=== PATIENT | female | born 1995 | race American Indian/Alaskan Native ===

== ENCOUNTER 2022-10-13 04:08 | Emergency (ER) | payer MEDICAID, SELFPAY ==
--- NOTE | 2022-10-13 04:17 | ED.GENADULT ---
HPI - General Adult <Brian Horn DO - Last Filed: 10/13/22 17:58> General Chief complaint: Toxicology Problem Stated complaint: alerted LOC- took something Time Seen by Provider: 10/13/22 04:12 Source: EMS, police and other (Boyfriend) Mode of arrival: EMS Limitations: altered mental status History of Present Illness HPI narrative: Patient is a 27-year-old female who was brought in by EMS. EMS was called by police. Apparently police found the patient wandering outside. Patient would not answer any questions. According to medical record it does appear that she is had some issues with alcohol in the past. The police state they have had interactions with her in the past but she is never acted like this around them. Patient's boyfriend states she has smoked fentanyl in the past but does not know if she has per taken in any other drugs especially any other intoxicating substances this evening. Per report by EMS the patient is not suicidal or homicidal however here in the emergency department she would not answer any questions. Related Data Home Medications Medication Instructions Recorded Confirmed ibuprofen 600 mg tablet ##0 07/11/16 Review of Systems <Brian Horn DO - Last Filed: 10/13/22 17:58> Review of Systems Narrative: Altered level of consciousness per police however patient would not answer any questions. Patient History <Brian Horn DO - Last Filed: 10/13/22 17:58> Social History Smoking Status: Current every day smoker Exam <Brian Horn DO - Last Filed: 10/13/22 17:58> Initial Vital Signs Initial Vital Signs: Vital Signs Temperature 97.9 F 10/13/22 04:30 Pulse Rate 118 H 10/13/22 04:30 Respiratory Rate 20 10/13/22 04:30 Blood Pressure 125/58 L 10/13/22 04:30 Pulse Oximetry 98 10/13/22 04:30 Oxygen Delivery Method Room Air 10/13/22 04:30 HENMT Head: normal to inspection and normocephalic Resp Effort & Inspection: normal respiratory effort Cardio Rate: tachycardic GI Inspection: non-distended Skin Other: No signs of trauma Neuro Other: Patient is awake and moving all 4 extremities in his ambulatory Psych Other: Patient does appear to have a paranoid local on her face. She is not answering any questions. <Lakshmi Levin DO - Last Filed: 10/13/22 19:06> Initial Vital Signs Initial Vital Signs: Vital Signs Temperature 97.9 F 10/13/22 04:30 Pulse Rate 118 H 10/13/22 04:30 Respiratory Rate 20 10/13/22 04:30 Blood Pressure 125/58 L 10/13/22 04:30 Pulse Oximetry 98 10/13/22 04:30 Oxygen Delivery Method Room Air 10/13/22 04:30 Course <Brian Horn DO - Last Filed: 10/13/22 17:58> Orders Ordered: ED Orders 10/13/22 11:17 Consult to [facility] [place] Software Requirements Engineer Stat Discontinued Medications Lorazepam (Lorazepam 0.5 Mg Tablet) 1 mg PO NOW ONE Stop: 10/13/22 08:14 Last Admin: 10/13/22 09:36 Dose: Not Given Documented By: JONEL Vital Signs Vital signs: Vital Signs - 8 hr 10/13/22 12:54 Pulse Rate 115 H Blood Pressure 114/75 Pulse Oximetry 99 Oxygen Delivery Method Room Air <Lakshmi Levin, DO - Last Filed: 10/13/22 19:06> Orders Ordered: ED Orders 10/13/22 11:17 Consult to [employer] Software Requirements Engineer Stat Discontinued Medications Lorazepam (Lorazepam 0.5 Mg Tablet) 1 mg PO NOW ONE Stop: 10/13/22 08:14 Last Admin: 10/13/22 09:36 Dose: Not Given Documented By: JONEL Vital Signs Vital signs: Vital Signs - 8 hr 10/13/22 12:54 Pulse Rate 115 H Blood Pressure 114/75 Pulse Oximetry 99 Oxygen Delivery Method Room Air Medical Decision Making <Brian Horn DO - Last Filed: 10/13/22 17:58> Lab Data 10/13/22 09:51 10/13/22 09:51 Labs: Lab Results 10/13/22 10/13/22 10/13/22 Range/Units 09:51 09:51 09:51 WBC 9.2 (4.5-11.0) X10^3/uL RBC 4.70 (4.0-5.2) X10^6/uL Hgb 13.7 (12.0-16.0) g/dL Hct 40.2 (36-46) % MCV 85.4 (80-100) fL MCH 29.1 (26-34) PG MCHC 34.1 (30-36) % RDW 14.9 H (11.6-14.8) % Plt Count 348 (150-400) X10^3/uL Neut % (Auto) 73.4 (50-75) % Lymph % (Auto) 18.4 L (25-40) % [place] % (Auto) 7.8 (3-14) % Eos % (Auto) 0.0 L (2-4) % Baso % (Auto) 0.4 (0-2) % Neut # (Auto) 6700 (1186-1949) /uL Lymph # (Auto) 1700 (5794-5592) /uL [place] # (Auto) 700 (0-900) /uL Eos # (Auto) 0 (0-450) /uL Baso # (Auto) 0 (0-100) /uL Sodium 140 (137-145) mmol/L Potassium 3.9 (3.4-5.1) mmol/L Chloride 104 (98-107) mmol/L Carbon Dioxide 26 (22-32) mmol/L BUN 12 (7-17) mg/dL Creatinine 0.55 (0.52-1.04) mg/dL Estimated GFR > 60 (>60) mL/min BUN/Creatinine Ratio 21.8 (6-22) Glucose 114 H (70-100) mg/dL Calcium 9.4 (8.4-10.2) mg/dL Total Bilirubin 0.9 (0.2-1.3) mg/dL AST 31 (14-36) IU/L ALT 17 (<35) IU/L Alkaline Phosphatase 59 (38-126) U/L Total Protein 8.3 H (6.3-8.2) g/dL Albumin 4.9 (3.5-5.0) g/dL Globulin 3.4 (1.7-4.1) g/dL Albumin/Globulin Ratio 1.4 (1.0-2.8) Lipase 67 (23-300) U/L TSH (0.47-4.68) uIU/mL Serum , Qual (Negative) Salicylates < 1.0 (<20) mg/dL Acetaminophen < 10 (10-30) ug/mL Ethyl Alcohol < 10 ( - 10) mg/dL 10/13/22 10/13/22 Range/Units 09:51 09:51 WBC (4.5-11.0) X10^3/uL RBC (4.0-5.2) X10^6/uL Hgb (12.0-16.0) g/dL Hct (36-46) % MCV (80-100) fL MCH (26-34) PG MCHC (30-36) % RDW (11.6-14.8) % Plt Count (150-400) X10^3/uL Neut % (Auto) (50-75) % Lymph % (Auto) (25-40) % [place] % (Auto) (3-14) % Eos % (Auto) (2-4) % Baso % (Auto) (0-2) % Neut # (Auto) (1409-0723) /uL Lymph # (Auto) (1581-7754) /uL [place] # (Auto) (0-900) /uL Eos # (Auto) (0-450) /uL Baso # (Auto) (0-100) /uL Sodium (137-145) mmol/L Potassium (3.4-5.1) mmol/L Chloride (98-107) mmol/L Carbon Dioxide (22-32) mmol/L BUN (7-17) mg/dL Creatinine (0.52-1.04) mg/dL Estimated GFR (>60) mL/min BUN/Creatinine Ratio (6-22) Glucose (70-100) mg/dL Calcium (8.4-10.2) mg/dL Total Bilirubin (0.2-1.3) mg/dL AST (14-36) IU/L ALT (<35) IU/L Alkaline Phosphatase (38-126) U/L Total Protein (6.3-8.2) g/dL Albumin (3.5-5.0) g/dL Globulin (1.7-4.1) g/dL Albumin/Globulin Ratio (1.0-2.8) Lipase (23-300) U/L TSH 0.394 L (0.47-4.68) uIU/mL Serum , Qual Negative (Negative) Salicylates (<20) mg/dL Acetaminophen (10-30) ug/mL Ethyl Alcohol ( - 10) mg/dL MDM Narrative Medical decision making narrative: Patient would not provide any information upon arrival. Patient's friend did come to the emergency department. There is a strong suspicion that the patient has partaken in some sort of an intoxicating substance. Her alcohol level is negative. Is reported that she has had issues with fentanyl in the past however her presentation today is not has consistent with a opioid intoxication but more of some sort psychotropic such as methamphetamine. Patient is directable but is not cooperative with having blood drawn. I do not feel that the patient has capacity to make decisions. There is no signs of trauma. Care turned over to day provider to continue to observe until disposition. <Lakshmi Levin, - Last Filed: 10/13/22 19:06> Lab Data Labs: Lab Results 10/13/22 10/13/22 10/13/22 Range/Units 09:51 09:51 09:51 WBC 9.2 (4.5-11.0) X10^3/uL RBC 4.70 (4.0-5.2) X10^6/uL Hgb 13.7 (12.0-16.0) g/dL Hct 40.2 (36-46) % MCV 85.4 (80-100) fL MCH 29.1 (26-34) PG MCHC 34.1 (30-36) % RDW 14.9 H (11.6-14.8) % Plt Count 348 (150-400) X10^3/uL Neut % (Auto) 73.4 (50-75) % Lymph % (Auto) 18.4 L (25-40) % [place] % (Auto) 7.8 (3-14) % Eos % (Auto) 0.0 L (2-4) % Baso % (Auto) 0.4 (0-2) % Neut # (Auto) 6700 (5953-1905) /uL Lymph # (Auto) 1700 (1885-7856) /uL [place] # (Auto) 700 (0-900) /uL Eos # (Auto) 0 (0-450) /uL Baso # (Auto) 0 (0-100) /uL Sodium 140 (137-145) mmol/L Potassium 3.9 (3.4-5.1) mmol/L Chloride 104 (98-107) mmol/L Carbon Dioxide 26 (22-32) mmol/L BUN 12 (7-17) mg/dL Creatinine 0.55 (0.52-1.04) mg/dL Estimated GFR > 60 (>60) mL/min BUN/Creatinine Ratio 21.8 (6-22) Glucose 114 H (70-100) mg/dL Calcium 9.4 (8.4-10.2) mg/dL Total Bilirubin 0.9 (0.2-1.3) mg/dL AST 31 (14-36) IU/L ALT 17 (<35) IU/L Alkaline Phosphatase 59 (38-126) U/L Total Protein 8.3 H (6.3-8.2) g/dL Albumin 4.9 (3.5-5.0) g/dL Globulin 3.4 (1.7-4.1) g/dL Albumin/Globulin Ratio 1.4 (1.0-2.8) Lipase 67 (23-300) U/L TSH (0.47-4.68) uIU/mL Serum , Qual (Negative) Salicylates < 1.0 (<20) mg/dL Acetaminophen < 10 (10-30) ug/mL Ethyl Alcohol < 10 ( - 10) mg/dL 10/13/22 10/13/22 Range/Units 09:51 09:51 WBC (4.5-11.0) X10^3/uL RBC (4.0-5.2) X10^6/uL Hgb (12.0-16.0) g/dL Hct (36-46) % MCV (80-100) fL MCH (26-34) PG MCHC (30-36) % RDW (11.6-14.8) % Plt Count (150-400) X10^3/uL Neut % (Auto) (50-75) % Lymph % (Auto) (25-40) % [place] % (Auto) (3-14) % Eos % (Auto) (2-4) % Baso % (Auto) (0-2) % Neut # (Auto) (9308-9741) /uL Lymph # (Auto) (8477-2475) /uL [place] # (Auto) (0-900) /uL Eos # (Auto) (0-450) /uL Baso # (Auto) (0-100) /uL Sodium (137-145) mmol/L Potassium (3.4-5.1) mmol/L Chloride (98-107) mmol/L Carbon Dioxide (22-32) mmol/L BUN (7-17) mg/dL Creatinine (0.52-1.04) mg/dL Estimated GFR (>60) mL/min BUN/Creatinine Ratio (6-22) Glucose (70-100) mg/dL Calcium (8.4-10.2) mg/dL Total Bilirubin (0.2-1.3) mg/dL AST (14-36) IU/L ALT (<35) IU/L Alkaline Phosphatase (38-126) U/L Total Protein (6.3-8.2) g/dL Albumin (3.5-5.0) g/dL Globulin (1.7-4.1) g/dL Albumin/Globulin Ratio (1.0-2.8) Lipase (23-300) U/L TSH 0.394 L (0.47-4.68) uIU/mL Serum , Qual Negative (Negative) Salicylates (<20) mg/dL Acetaminophen (10-30) ug/mL Ethyl Alcohol ( - 10) mg/dL MDM Narrative Medical decision making narrative: Patient would not provide any information upon arrival. Patient's friend did come to the emergency department. There is a strong suspicion that the patient has partaken in some sort of an intoxicating substance. Her alcohol level is negative. Is reported that she has had issues with fentanyl in the past however her presentation today is not has consistent with a opioid intoxication but more of some sort psychotropic such as methamphetamine. Patient is directable but is not cooperative with having blood drawn. I do not feel that the patient has capacity to make decisions. There is no signs of trauma. Care turned over to day provider to continue to observe until disposition. Patient seen evaluated by myself signed out by Dr. Horn. She is awake and alert appears to be hallucinating not really forthcoming with information. Boyfriend at bedside is a calming person for her. Suspect methamphetamine use the patient does not fit opioid toxidrome. She has been refusing blood work she is not yet urinated. She is offered Ativan. She is not back to baseline. She declined Ativan. Patient was agreeable to blood work. She did not find it. Blood work is overall reassuring. She never urinated. She is evaluated by social work patient slowly started coming around. Presumed methamphetamine use. To friends are with her she feels safe going home. She started talking more and more especially after evaluation by social work. At this time does not meet involuntary criteria. Discharge Plan Departure Patient Disposition: Home Clinical Impression: Methamphetamine abuse Instructions: DI for Substance Use Disorder Activity Restrictions/Additional Instructions: *You have been diagnosed with it is assumed that you took some methamphetamine yesterday *What to do: If you are feeling unsafe he may always return to the emergency department for help *Continue to take medications as directed *Follow up with your primary care provider in 2-3 days or call [phone] *Return to ER if you should have any new, worsening or concerning symptoms Prescriptions: No Action ibuprofen 600 mg tablet Qty: 0 Referrals: Kale Ayoub MD [Non-Staff] - Stand Alone Forms: Patient Portal/API
[2022-10-13 04:30] VITALS: BP 125/58; PULSE 118; RESP 20; TEMP 36.6; O2SAT 98
--- NOTE | 2022-10-13 06:50 | PC.NURSE ---
Patient refuses to have blood drawn, refuses to use the toilet for urination. Ex-boyfriend/best friend has been with patient since arrival. Friend is unable to get patient to cooperate. Patient will speak but in a very low mumble voice, but will yell out at times in anger. Pupils remain very large in diameter. Police brought her here involuntary and is not allowed to leave due to safety of the patient. Patient still very high in appearance.
--- NOTE | 2022-10-13 07:34 | PC.NURSE ---
Addendum entered by Pastora Hoffmann CNA 10/13/22 12:20: pt. wanting to leave. put on shoes, let pt. know that paper latcher will come in and speak with her because they need to make sure she can be medically cleared before she can leave. Addendum entered by Pastora Hoffmann CNA 10/13/22 11:32: pt. was sitting on bed, stood up and came to the door and stated what the fuck? , told pt. that the TRAFFIC MONITOR SPECIALIST will be here at soon and will have a conversation with the pt. , advised pt they have to stay in the room until then. pt. remains in room and drinking water. Addendum entered by Pastora Hoffmann CNA 10/13/22 11:16: friend Chris and Chinedu remain bedside. pt continues to not say much and look around the room and looks confused. pt continues to clinical business manager the middle of the room. friend Chris continues to try to persuade pt to rest in the bed. Addendum entered by Pastora Hoffmann CNA 10/13/22 10:07: friends chris and blayne at bedside Addendum entered by Pastora Hoffmann CNA 10/13/22 09:15: assisted pt. to bathroom and attempted to get a urine sample with the assistance of pt. friend Saravanan, pt. seemed disorientied, not responding to wanting to use the bathroom and then proceeded to sit on the floor. convinced pt to stand and attempt to use the bathroom even if they did not want to give a sample. stepped out of the bathroom and encouraged to use the call light on the wall. RN knocked on the door, offered to give pt. ativan to help, encouraged pt. back to room, walked back to the room and pt. refused ativan. Friend Saravanan stated he needed to leave to get some food. pt. stood by doorway and made several attempts to leave the room, pt stated i need to go, this clip and hanger attacher asked pt go where, pt. stated i need to get back to the house. let pt. know they could not leave just yet. Friend/boyfriend Saravanan returned with food and encouraged pt. to sit and eat. pt. is now sitting with friend by the sink. Original Note: PIE BOTTOMER note: pt is sitting calmly on the bed with friend/boyfriend bedside.
[2022-10-13 10:03] LABS: Add Manual Diff / Slide Review NO; Basophils Absolute Auto 0 /uL (0-100); Basophils Percent Auto 0.4 % (0-2); Eosinophils Absolute Auto 0 /uL (0-450); Hematocrit 40.2 % (36-46); Hemoglobin 13.7 g/dL (12.0-16.0); Lymphocytes Absolute Auto 1700 /uL (1100-4500); Lymphocytes Percent Auto 18.4 % (25-40); Mean Corpuscular HGB Conc 34.1 % (30-36); Mean Corpuscular Hemoglobin 29.1 PG (26-34); Mean Corpuscular Volume 85.4 fL (80-100); Monocytes Absolute Auto 700 /uL (0-900); Monocytes Percent Auto 7.8 % (3-14); Neutrophils Absolute Auto 6700 /uL (1500-7000); Neutrophils Percent Auto 73.4 % (50-75); Platelet Count 348 X10^3/uL (150-400); Red Cell Distribution Width 14.9 % (11.6-14.8); White Blood Cell Count 9.2 X10^3/uL (4.5-11.0)
[2022-10-13 10:23] LABS: Acetaminophen < 10 ug/mL (10-30); Alanine Aminotransferase 17 IU/L (<35); Albumin 4.9 g/dL (3.5-5.0); Albumin Globulin Ratio 1.4 (1.0-2.8); Alkaline Phosphatase 59 U/L (38-126); Aspartate Aminotransferase 31 IU/L (14-36); BUN Creatinine Ratio 21.8 (6-22); Bilirubin Total 0.9 mg/dL (0.2-1.3); Blood Urea Nitrogen 12 mg/dL (7-17); Calcium 9.4 mg/dL (8.4-10.2); Carbon Dioxide 26 mmol/L (22-32); Chloride 104 mmol/L (98-107); Estimated Glomerular Filt Rate > 60 mL/min (>60); Ethanol (ETOH) < 10 mg/dL; Globulin 3.4 g/dL (1.7-4.1); Glucose 114 mg/dL (70-100); HEMOLYSIS 16 (0-50); Lipase 67 U/L (23-300); Potassium 3.9 mmol/L (3.4-5.1); Salicylate < 1.0 mg/dL (<20); Sodium 140 mmol/L (137-145); Total Protein 8.3 g/dL (6.3-8.2)
[2022-10-13 10:42] LABS: Pregnancy Test Serum,Qual Negative (Negative)
[2022-10-13 11:12] LABS: Thyroid Stimulating Hormone 0.394 uIU/mL (0.47-4.68)
--- NOTE | 2022-10-13 12:51 | CM.SWNOTE ---
SOFTWARE TESTER Assessment Note Patient is 27 y/o female who presents to ED via EMS after LE involvement. It is reported that patient accidentally called [facility] dispatch last night. Patient endorses she was tripping out but states she only had one shot of whiskey. Patient denies any other recent substance use and states she is 27 days clean from fentanyl pills. Patient's friend Chris states that he picked up patient from penitentiary and bailed her out last night. SOFTWARE TESTER enters room to meet with patient. Present in room is patient's friend Chris and friend Chinedu. Patient presents sitting on Chris's lab while Chinedu is sleeping on the bed. Patient presents as A/Ox3 and endorses preference for friends to stay in room while meeting with SOFTWARE TESTER. Patient presents with large pupils, staring blankly and speaks with flat affect. Patient endorses she feels better than last night. Patient speaks with soft mumbling voice that is difficult to understand. Patient denies SI or HI. Patient endorses she feels safe where she is living, feels safe with friends and would feel safe returning to [place] with Chris. It is reported that patient lives with Chris on [facility] but was staying at friend's house in [place] which is where she was staying last night. Patient endorses she had a recent DUI charge and has upcoming community court dates. Patient endorses she has a PO and has plans to seek outpatient [facility] evaluation. Patient denies interest in inpatient rehabilitation or detox and endorses preference to d/c to home. Patient denies recent substance use and denies providing a urine sample, patient is negative for ETOH. SOFTWARE TESTER reviews [place] and observes recent charges from [facility] and [facility] court this year. SOFTWARE TESTER reviews [place] and observes hx of patient's ED encounters at [facility], [facility] and [facility] regarding Opioid and Meth use as well as psychotic presentation. Most recently patient was discharged to penitentiary in June 2022 from [facility] on [facility]. SOFTWARE TESTER speaks with friends Chris and Chinedu who deny patient taking any other substance and states that patient accidentally called LE, Chris states he spoke with patient about getting on the right path and thinks patient had a trauma response to this conversation and patient chose to stay up late. Chinedu states that he drove here and plans to drive patient upon d/c. It is the opinion of this SOFTWARE TESTER that there is information that patient and friends are not providing SOFTWARE TESTER but patient does not present as gravely disabled and denies SI and HI. It is determined by SOFTWARE TESTER and ED provider Dr. Levin that patient is safe to d/c to home with friends upon medical clearance. Patient endorses plan to f/u with court dates and PO to seek outpatient plan. Plan: Patient to d/c to home upon medical clearance with friends. SOFTWARE TESTER provides patient with list of [facility] outpatient resources. Antonia Nolen, FARM PRODUCT PURCHASER
[2022-10-13 12:54] VITALS: BP 114/75; PULSE 115; O2SAT 99
== END 2022-10-13 13:08 | disposition home or self-care (01) ==
PROVIDERS: Emergency Medicine; Emergency Provider Emergency Medicine
DX: F15.10 Other stimulant abuse, uncomplicated (principal)
CPT/HCPCS: 36415; 80053; 80320; 80329; 83690; 84443; 84703; 85025; 99284; G0480

== ENCOUNTER 2022-12-04 17:28 | Emergency (ER) | payer MEDICAID, SELFPAY ==
[2022-12-04] VITALS (10 sets, daily range): BP systolic 100–113; BP diastolic 60–75; PULSE 95–110; RESP 14–34; TEMP 36.6; O2SAT 94–100; BMI 21.4
[2022-12-04] MEDS: ONDANSETRON 4 MG ODT SL (17:40)
--- NOTE | 2022-12-04 18:28 | ED_ITS ---
HPI - Overdose General Chief Complaint: Toxicology Problem Stated Complaint: Unresponsive Time Seen by Provider: 12/04/22 17:30 History of Present Illness HPI Narrative: Patient is a 27-year-old female history of fentanyl use and abuse presenting today with overdose for Narcan. Patient reports that she was getting ready to drive she is not sure what happened she passed out and EMS woke her up. She reports that he is overdosed at least 11 times. She is awake alert oriented remorseful. Not an intentional overdose no thoughts of self harm. Related Data Home Medications Medication Instructions Recorded Confirmed ibuprofen 600 mg tablet ##0 07/11/16 Allergies Allergy/AdvReac Type Severity Reaction Status Date / Time No Known Drug Allergies Allergy Verified 12/04/22 17:40 Patient History Social History Smoking Status: Current every day smoker Smoking Status: Current every day smoker alcohol intake frequency: a few times a month Substance Use Type: opiates Exam Initial Vital Signs Initial Vital Signs: Vital Signs Temperature 97.8 F 12/04/22 17:32 Pulse Rate 110 H 12/04/22 17:32 Respiratory Rate 14 12/04/22 17:32 Blood Pressure 105/72 12/04/22 17:32 Pulse Oximetry 98 12/04/22 17:32 Oxygen Delivery Method Room Air 12/04/22 17:32 GENERAL: Awake alert 27-year-old female HEAD: Atraumatic. Normocephalic. EYES: Pupils equal round and reactive. ENT: Nose without bleeding, purulent drainage. Throat without erythema, tonsillar hypertrophy or exudate. Airway patent. NECK: Trachea midline. Non tender CARDIOVASCULAR: Regular rate and rhythm without murmurs, gallops, or rubs. RESPIRATORY: Clear to auscultation. Breath sounds equal bilaterally. No wheezes, rales, or rhonchi. EXTREMITIES: No edema or joint tenderness. BACK: Nontender without deformity or crepitance. No flank tenderness. NEURO: AOx3. SKIN: No rash or erythema of visible areas Course Orders Ordered: ED Orders 12/04/22 17:46 EKG-12 Lead Routine Naloxone HCl (Naloxone 4 Mg Nasal [place]) 4 mg MISC SEEINSTR ONE Stop: 12/04/22 19:13 Last Admin: 12/04/22 19:18 Dose: 4 mg Discontinued Medications Ondansetron HCl (Ondansetron 4 Mg Odt) 4 mg SL NOW ONE Stop: 12/04/22 17:38 Last Admin: 12/04/22 17:40 Dose: 4 mg Documented By: RB Vital Signs Vital signs: Vital Signs - 8 hr 12/04/22 17:32 12/04/22 17:32 12/04/22 17:33 Temperature 97.8 F Pulse Rate 110 H 105 H 108 H Respiratory Rate 14 Blood Pressure 105/72 Pulse Oximetry 98 100 100 Oxygen Delivery Method Room Air 12/04/22 17:33 12/04/22 18:00 12/04/22 18:04 Temperature Pulse Rate 105 H Respiratory Rate 16 Blood Pressure 105/72 113/75 Pulse Oximetry 99 Oxygen Delivery Method 12/04/22 18:04 12/04/22 18:30 12/04/22 18:31 Temperature Pulse Rate 102 H 106 H 105 H Respiratory Rate 17 25 H Blood Pressure Pulse Oximetry 98 94 98 Oxygen Delivery Method Room Air 12/04/22 18:31 12/04/22 19:00 12/04/22 19:01 Temperature Pulse Rate 102 H 100 H Respiratory Rate 34 H 26 H Blood Pressure 100/62 Pulse Oximetry 95 97 Oxygen Delivery Method Room Air 12/04/22 19:04 12/04/22 19:04 12/04/22 19:10 Temperature Pulse Rate 95 H 99 H Respiratory Rate 25 H 30 H Blood Pressure 111/64 Pulse Oximetry 96 99 Oxygen Delivery Method Room Air 12/04/22 19:10 Temperature Pulse Rate Respiratory Rate Blood Pressure 109/60 Pulse Oximetry Oxygen Delivery Method MDM - Overdose Lab Data Labs: Point of Care Testing Glucose POC 66 ECG Data Interpretation: Sinus rhythm rate 108 MA interval 154 QRS [address] changes no T-wave inversions respiratory artifact noted MDM Narrative Medical decision making narrative: Patient history of polysubstance abuse presents today with overdose from fentanyl nonintentional. Awake alert oriented. Glucose was found to be low in the 60s she was given juice and a sandwich. She is monitored for 90 minutes given Narcan prepack to go home with. She reports that she is signed up with substance abuse program but has not yet started. She is supposed to start next week. Support person at bedside. Naloxone at Discharge Meets criteria for naloxone at discharge?: Yes Discharge Plan Departure Patient Disposition: Home Clinical Impression: Opiate overdose Qualifiers: Encounter type: initial encounter Injury intent: accidental or unintentional Qualified Code(s): T40.601A - Poisoning by unspecified narcotics, accidental (unintentional), initial encounter Instructions: Opioid Use Disorder, Naloxone for Opiate Overdose - [facility] Activity Restrictions/Additional Instructions: *You have been diagnosed with opiate/fentanyl overdose *What to do: Please follow-up with Didyolandaic *Continue to take medications as directed *Follow up with your primary care provider in 2-3 days or call [phone] *Return to ER if you should have any new, worsening or concerning symptoms Prescriptions: No Action ibuprofen 600 mg tablet Qty: 0 Stand Alone Forms: Patient Portal/API
[2022-12-04] MEDS: NALOXONE 4 MG NASAL SPRAY MISC (19:18)
== END 2022-12-04 19:25 | disposition home or self-care (01) ==
PROVIDERS: Emergency Provider Emergency Medicine
DX: T40.411A Poisoning by fentanyl or fentanyl analogs, accidental (unintentional), initial encounter (principal)
CPT/HCPCS: 93005; 93010; 99284; A9270